=== PATIENT | female | born 2000 | race African-American/Black ===

== ENCOUNTER 2022-04-27 19:05 | Emergency (ER) | payer SELFPAY ==
[~2022-04-27] VITALS: Ht 165.1 cm; Wt 102.0 kg
[2022-04-27 19:11] VITALS: BP 143/93
[2022-04-27] MEDS ORDERED: ACETAMINOPHEN 325MG TABLET PO ONE (21:15)
[2022-04-27] MEDS ORDERED: ACET-2708 MT (22:17)
== END 2022-04-27 23:18 | disposition home or self-care (01) ==
LOC: ER 19:05
DX: S67.02XA Crushing injury of left thumb, initial encounter (principal); X58.XXXA Exposure to other specified factors, initial encounter; Y93.89 Activity, other specified; Y92.89 Other specified places as the place of occurrence of the external cause; Y99.8 Other external cause status; J45.909 Unspecified asthma, uncomplicated; Z88.0 Allergy status to penicillin; I10 Essential (primary) hypertension
CPT/HCPCS: 73130; 99283